=== PATIENT | female | born 1970 | race Caucasian/White ===

== ENCOUNTER → 2017-04-13 | Day surgery (SDC) | payer BC ==
--- NOTE | 2017-04-06 12:15 | MH ---
cc: PATTI BUSTOS MD,ANGY Ruby MD DATE OF ADMISSION 04/13/2017 DATE OF 1970 REASON FOR ADMISSION Admitted for transobturator tape for stress incontinence. HISTORY OF PRESENT ILLNESS The patient is a 46-year-old female 3, para 3 who has issues of stress urinary incontinence. This started after the liver second child. She has incontinence throughout the day, worse with laughing, coughing, lifting or intercourse. It has a significant impact on her quality of life and wants to proceed with surgical repair. Patient has had cystometric testing that shows no sign of detrusor instability. No postvoid residual abnormality, normal EMG and normal uroflow dynamics. Her maximal volume is 237 and she leaks at 165 cc of water. PAST MEDICAL HISTORY The patient's medical history is negative for heart, lung, liver disease, hypertension, diabetes, or stroke. PAST SURGICAL HISTORY 1. Tubal ligation 2. Breast augmentation 3. Ophthalmic surgery SOCIAL HISTORY She is from [place]. Portuguese is not her main language for communication. We have used translators in the past either her or a translating service. she does not smoked, use alcohol or drugs. She has a good social support. FAMILY HISTORY Noncontributory OBSTETRICAL HISTORY Three vaginal deliveries, largest baby was 8 pounds, second baby did require some sort of instrumentation. All babies were delivered in [place], so we do not have any records. GYNECOLOGIC HISTORY No STD's or abnormal Pap smears. Her cycles are once a month. MEDICATIONS None ALLERGIES None REVIEW OF SYSTEMS As above. No chest pain, orthopnea, PND. No nausea, vomiting, fever, chills. No vaginal bleeding or discharge. PHYSICAL EXAM On her exam, she is afebrile. Vital signs stable. Blood pressure is 120/70, height 5.4, weight is 125, BMI is 21.5. Patient is alert and oriented in no acute disstress. No sign of cognitive dysfunction or depression. HEENT: Within normal limits. NECK: Supple. No JVD. CHEST: Clear. HEART: Regular rate and rhythm. ABDOMEN: Soft and nontender. No hepatosplenomegaly. No CVA tenderness. PELVIC: Exam will be detailed under anesthesia. In the office, we note a POP-Q score: Aa is -1, Ap is -1. Point C is -8. Total vaginal length is 10. Genital hiatus is 4. Perineal body is 4, levator muscle strength is 3/5. Sacral nerve reflexes are normal. No significant postvoid residual. She does have hypermobility of urethra noted. Further exam under anesthesia. EXTREMITIES: Normal, skin without rashes. NEUROLOGIC: Exam nonfocal. No DVT signs. ASSESSMENT Patient with stress urinary continence. The patient and I discussed with her and volunteer services assistant, as well as going over videos and charts issues regarding stress urinary incontinence, different etiologies and different options for treatment. She is aware of the risks, benefits and alternatives of the planned procedure including damage to surrounding organs, bleeding, infection, damage to organs, erosion of tape, failure of repair to remedy stress incontinence, issues with urgency, dyspareunia, bleeding and issues requiring removal of the sling. Patient has made an informed choice to proceed. The patient will probably need her or a volunteer services assistant throughout the preop and postoperative period while in the hospital. We anticipate outpatient procedure. We will use DVT prophylaxis with sequential compression device and antibiotic prophylaxis Ancef 2 grams IV. MD CHRIS Galan/FLAVIO /11:50 AM /11:58 AM
[~2017-04-13] VITALS: Ht 162.6 cm; Wt 59.6 kg
[~2017-04-13] MED LIST: CHLORHEXIDINE GLUCONATE 2 % 1 PACK (2 CLOTHS) TOPICAL PRN; DO NOT ADM ANY ANTICOAGULANT DRUGS PRN; INSULIN HUMAN REGULAR 1,000 UNITS/10 ML VIAL SQ PRN; KETOROLAC TROMETHAMINE 30 MG/ML (IVP) VIAL IV PUSH PRN; KETOROLAC TROMETHAMINE 60 MG/2 ML (IM) VIAL IM ONE; LACTATED RINGER'S 1000 ML IV PRN; LIDOCAINE 1%/EPINEPHrine 1:100,000 SOLN 50 ML VIAL INFIL ONE; METHYLENE BLUE 10 MG/ML VIAL OTHER ONE; METOPROLOL TARTRATE 25 MG TAB PO PRN; MULTTAB67 PO; ONDANSETRON HCL 4 MG/2 ML VIAL IV PUSH ONE; ONDANSETRON HCL 4 MG/2 ML VIAL IV PUSH PRN; POVIDONE IODINE 5% (ANTISEPSIS KIT) 4 APPLICATIONS EACH NARE PRN; PROPOFOL 200 MG/20 ML AMP IV ONE; SODIUM CHLORID 0.9% 500 ML IV PRN; ceFAZolin 2 GM PREMIX 50 ML IV SCH; ceFAZolin 2 GM PREMIX 50 ML ONE; fentaNYL CITRATE 250 MCG/5 ML AMP ONE; traMADol HCL 50 MG TAB PO PRN
--- NOTE | 2017-04-13 12:03 | MP ---
cc: PATTI BUSTOS MD, PATRICIA I. MD DATE OF SURGERY: 04/13/2017 PREOPERATIVE DIAGNOSES Stress urinary incontinence. POSTOPERATIVE DIAGNOSIS Stress urinary incontinence with cystocele. PROCEDURE 1. Transobturator tape using Caldara polypropylene sling. 2. Anterior repair. 3. Diagnostic cystoscopy. SURGEON Dr. Bustos ANESTHESIA Laryngeal mask. ESTIMATED BLOOD LOSS 50 cc. URINE OUTPUT 150 cc prior to case. RELIGIOUS LEADER [employer] x2. SURGEON Dr. Bustos FINDINGS External genitalia normal. POP-Q score: Aa is 0; Ap is -1; point C is -6; total vaginal length is 10; general hiatus is 5; perineal body is 4. Following repair Aa is -3. Cystoscope shows normal bladder with good coaptation of urethra. Ureteral orifices patent x2. Dome and base of bladder normal. SPECIMENS Vaginal mucosa trimmed but not sent. COMPLICATIONS None. DISPOSITION To recovery room stable. COUNTS Needle and sponge counts correct. DRAINS Acosta catheter. PROPHYLAXIS Antibiotic prophylaxis: Ancef two grams. DVT prophylaxis: Sequential compression device. Timeout procedure per protocol. SUMMARY OF INDICATION FOR PROCEDURE Patient with symptomatic stress urinary continence. She had urodynamic testing that showed capacity of approximately 300 cc with leak at 165. No sign of detrusor instability. She had hypermobility on clinical exam. DETAILS OF PROCEDURE The patient was taken to the operating theatre, identified, prepped and draped in a fashion appropriate for planned procedure. She was in the dorsal lithotomy position with careful attention paid to placement of legs in stirrups to avoid undue stress to sensitive neurovascular structures. Above findings noted. Neurovascular integrity documented. A Acosta catheter was placed. Methylene blue was instilled into the bladder. The obturator foramen were outlined and infiltrated with epinephrine/lidocaine solution. A midline incision was made in the vaginal mucosa after infiltration with epinephrine/lidocaine solution. The incision was approximately 3 cm and there was no spill of methylene blue with dissection A C-hook was placed from a lateral to medial position bilaterally. The polypropylene sling was put into position and used a horizontally apposed a scalpel handle as spacer. One edge of the sling had a tendency to curve upwards so this was sutured in place with 3-0 Vicryl suture on the right side. Cystoscopy was performed. Above findings noted. Good coaptation of urethra. Ureteral orifices patent x2. Dome and base of bladder normal. The left anterior repair was performed in standard fashion with delayed absorbable suture. The vaginal mucosa was trimmed and hemostasis was good with hemostatic matrix to obviate the need for packing. The procedure was concluded. As above noted, cystoscopy findings, suture line intact, good hemostasis. The patient was reversed from anesthesia and taken to the recovery room in stable condition. Patti Bustos MD CS/BT /11:03 AM /11:49 AM
[2017-04-13 12:57] VITALS: BP 127/78; PULSE 79; RESP 16; TEMP 98.1; O2SAT 100
== END | disposition home or self-care (01) ==
LOC: HSDC 07:10
PROVIDERS: ATTEND Obstetrics & Gynecology Gynecology
DX: N39.3 Stress incontinence (female) (male) (principal); N81.10 Cystocele, unspecified
CPT/HCPCS: 57240; 57288; C1771; J0690; J1885; J2405; J3010; J7120